=== PATIENT | female | born 1980 | race Caucasian/White ===

== ENCOUNTER → 2016-07-22 | Outpatient (CLI) | payer OTHER ==
--- NOTE | 2016-07-22 18:46 | PN ---
DATE OF SERVICE: 07/22/2016 The patient has come to see me in follow-up regarding obstructive sleep apnea treatment. She has severe JORGE and, based on a previous sleep study, the patient was found to have an AHI of 50, currently setting on CPAP pressure of 9 cm of water. Her compliance has improved with CPAP therapy. 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 She is also on 50 mg of prednisone and she has gained a significant amount of weight and she is in the process of trying to lose some weight now. She is currently weighing 274 with a BMI of 41.6. Her compliance is improving as the patient is able to try to ( ) CPAP more effectively. There have been some issues putting the mask on her face knowing that she has chronic skeletal pain and cartilage pain involving the nose and the face. For the most part she is using a nasal pillow, and a Mirage FX mask. Her compliance for the past 30 days showed CPAP use 26 out of 30 days. Her CPAP use for more than 4 hours is more than 50% of the time. Her average CPAP use is around 4.7 hours per night. Leak factor is 11 liters and the AHI while on treatment is down to 0.1. Much improved in terms of her symptoms of hypersomnia and sleepiness. She is much more alert and awake during the day. [place] score is at 8. She is averaging around 6 hours of sleep at night. BP is 127/70, pulse 102, respirations 16, temperature 98.4, saturation 97% on room air. Weight is 274. Height is 5 feet 8 inches. BMI is 41.6. GENERAL APPEARANCE: Calm, comfortable, obese. HEENT: Short neck, crowding of the posterior pharynx. There is no goiter, neck masses. There is a rash over the face bilaterally involving the cheeks. LUNGS: Diminished; otherwise clear. HEART: Sounds are regular rate and rhythm. Normal S1, S2. No S3, no S4. No murmurs. ABDOMEN: Obese, soft, nontender. No organomegaly. EXTREMITIES: No edema. No cyanosis or clubbing. IMPRESSION: 1. Severe obstructive sleep apnea with an AHI of 50, currently on CPAP pressure of 9. Treatment has been successful for now with improving compliance. 2. Obesity with a body mass index of 41.6. 3. Chronic hypersomnia, improving. 4. 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 Wallis at [facility]. 5. Osteoporosis. 6. Peripheral neuropathy. 7. Diabetes mellitus. 8. Chronic steroid treatment, currently on 50 mg of prednisone. PLAN: 1. Continue CPAP therapy at the same level of pressure. 2. Encourage to increase sleep hours to an average of 7 to 8 hours per night. 3. Continue using the same mask interface. 4. Treatment has become more successful and the patient will see me back in the office in the office in a year's time in follow-up.
== END | disposition home or self-care (01) ==
LOC: SLEEP 13:27
PROVIDERS: ATTEND Internal Medicine Critical Care Medicine
DX: G47.33 Obstructive sleep apnea (adult) (pediatric) (principal); E66.9 Obesity, unspecified; L98.2 Febrile neutrophilic dermatosis [Sweet]; M81.0 Age-related osteoporosis without current pathological fracture; E11.9 Type 2 diabetes mellitus without complications; Z68.41 Body mass index [BMI] 40.0-44.9, adult; Z79.52 Long term (current) use of systemic steroids